=== PATIENT | female | born 1955 | race Caucasian/White ===

== ENCOUNTER 2024-04-11 09:58 | Emergency (ER) | payer OTHER, BC ==
[2024-04-11 10:07] VITALS: BP 154/83; PULSE 95; RESP 16; TEMP 98.2; BMI 21.9
[2024-04-11 12:08] LABS: BASO % 0.6 % (0-2.0); EOS % 0.2 % (0-4.5); EPI CELLS 3 /uL (0-25.1); HEMATOCRIT 41.2 % (32.4-45.2); HEMOGLOBIN 14.2 GM/dL (10.7-15.3); HYALINE CASTS 0 /uL (0-3.1); LYMPH % 24.5 % (8-40); MCH 31.5 pg (25.7-33.7); MCHC 34.5 g/dl (32.0-36.0); MEAN CELL VOLUME 91.2 fl (80-96); MEAN PLT VOLUME 6.2 fl (7.5-11.1); MONO % 6.7 % (3.8-10.2); PLATELET COUNT 283 10^3/uL (134-434); RBC 4.52 M/mm3 (3.60-5.2); RDW 12.9 % (11.6-15.6); URINE APPEARANCE CLEAR; URINE BACTERIA 98 /uL (0-1359); URINE BILIRUBIN NEGATIVE (NEGATIVE); URINE COLOR YELLOW; URINE GLUCOSE (UA) NEGATIVE (NEGATIVE); URINE KETONE NEGATIVE (NEGATIVE); URINE LEUK ESTERASE TRACE (NEGATIVE); URINE NITRITE NEGATIVE (NEGATIVE); URINE PROTEIN NEGATIVE (NEGATIVE); URINE RBC 5 /uL (0-23.9); URINE UROBILINOGEN 0.2 mg/dL (0.2-1.0); URINE WBC 5 /uL (0-25.8); WHITE BLOOD COUNT 6.6 K/mm3 (4.0-10.0)
[2024-04-11 12:19] LABS: ACTIVATED PTT 29.5 SECONDS (25.2-36.5); INR 0.93 (0.83-1.09); PROTHROMBIN TIME (PATIENT) 10.7 SEC (9.7-13.0)
[2024-04-11 12:24] LABS: CHLORIDE 105 mmol/L (98-107); SODIUM 137 mmol/L (136-145)
[2024-04-11 12:27] LABS: ALBUMIN 3.9 g/dl (3.4-5.0); CALCIUM 9.7 mg/dL (8.5-10.1); POTASSIUM 6.1 mmol/L (3.5-5.1)
[2024-04-11 12:28] LABS: ANION GAP 6 mmol/L (4-13); BLOOD UREA NITROGEN 9.6 mg/dL (7-18); CO2 26 mmol/L (21-32); GLUCOSE,RANDOM 96 mg/dL (74-106)
[2024-04-11 12:31] LABS: CREATININE 0.8 mg/dL (0.55-1.3); SGOT/AST 71 U/L (15-37)
[2024-04-11 12:32] LABS: BILIRUBIN,TOTAL 1.6 mg/dL (0.2-1)
[2024-04-11 12:33] LABS: ALK PHOS 69 U/L (45-117)
[2024-04-11 12:35] LABS: TOT PROT 7.5 g/dl (6.4-8.2)
[2024-04-11 12:49] LABS: SGPT/ALT 29 U/L (13-61)
[2024-04-11 14:16] LABS: POTASSIUM 3.6 mmol/L (3.5-5.1)
[2024-04-11 14:18] LABS: CALCIUM 8.4 mg/dL (8.5-10.1)
[2024-04-11 14:19] LABS: ALBUMIN 3.4 g/dl (3.4-5.0); BLOOD UREA NITROGEN 8.2 mg/dL (7-18)
[2024-04-11 14:22] LABS: CREATININE 0.6 mg/dL (0.55-1.3)
[2024-04-11 14:24] LABS: BILIRUBIN,TOTAL 1.2 mg/dL (0.2-1); TOT PROT 5.9 g/dl (6.4-8.2)
[2024-04-11] MEDS ORDERED: MAGNESIUM HYDROX 2400MG/30ML ORAL SUSPENSION 30 ML CUP ONE (14:29)
[2024-04-11] MEDS: MAGNESIUM HYDROX 2400MG/30ML ORAL SUSPENSION 30 ML CUP PO ONE (14:33)
== END 2024-04-11 14:38 | disposition home or self-care (01) ==
LOC: JER 09:58
DX: K59.00 Constipation, unspecified (principal); R11.0 Nausea; K62.3 Rectal prolapse
CPT/HCPCS: 36415; 74177-TC; 80053; 81003; 85025; 85610; 85730; 87086; 93005; 93010; 99285-25; Q9967

== ENCOUNTER 2024-05-02 13:36 | Observation (INO) | payer OTHER, BC ==
[2024-05-02 13:46] VITALS: BMI 21.9
[2024-05-02 15:29] LABS: BASO % 0.5 % (0-2.0); EOS % 1.2 % (0-4.5); HEMATOCRIT 46.1 % (32.4-45.2); HEMOGLOBIN 15.6 GM/dL (10.7-15.3); LYMPH % 30.1 % (8-40); MCH 31.3 pg (25.7-33.7); MCHC 33.8 g/dl (32.0-36.0); MEAN CELL VOLUME 92.7 fl (80-96); MEAN PLT VOLUME 6.1 fl (7.5-11.1); MONO % 6.7 % (3.8-10.2); NEUT % 61.5 % (42.8-82.8); PLATELET COUNT 316 10^3/uL (134-434); RBC 4.98 M/mm3 (3.60-5.2); RDW 12.9 % (11.6-15.6); WHITE BLOOD COUNT 6.8 K/mm3 (4.0-10.0)
[2024-05-02 15:36] LABS: INR 0.96 (0.83-1.09); PROTHROMBIN TIME (PATIENT) 10.9 SEC (9.7-13.0)
[2024-05-02 15:39] LABS: ACTIVATED PTT 23.8 SECONDS (25.2-36.5)
[2024-05-02 15:46] LABS: POTASSIUM 3.5 mmol/L (3.5-5.1)
[2024-05-02 15:48] LABS: CALCIUM 10.1 mg/dL (8.5-10.1)
[2024-05-02 15:49] LABS: ALBUMIN 4.6 g/dl (3.4-5.0); BLOOD UREA NITROGEN 13.3 mg/dL (7-18); MAGNESIUM 2.2 mg/dL (1.8-2.4)
[2024-05-02 15:52] LABS: CREATININE 0.9 mg/dL (0.55-1.3)
[2024-05-02 15:53] LABS: BILIRUBIN,TOTAL 1.8 mg/dL (0.2-1); TOT PROT 7.8 g/dl (6.4-8.2)
[2024-05-02] MEDS ORDERED: MAGNESIUM CITRATE 300 ML BOTTLE ONE (15:57)
[2024-05-02] MEDS: MINERAL OIL ENEMA 133 ML ENEMA RC ONE (15:58)
[2024-05-02] MEDS: LACTATED RINGERS SOLUTION 1000 ML INFUS.BAG IV ONE (16:02)
[2024-05-02] MEDS: MAGNESIUM CITRATE 300 ML BOTTLE PO ONE (16:02)
[2024-05-02 16:15] LABS: LACTIC ACID 2.2 mmol/L (0.4-2.0)
[2024-05-02 16:47] LABS: HIV INTERPRETATION NEGATIVE (NEGATIVE)
[2024-05-03] MEDS: DOCUSATE SODIUM 100 MG CAPSULE (FP) PO SCH (05:41)
[2024-05-03] MEDS ORDERED: BISACODYL 10 MG SUPP.RECT PR PRN (08:44)
[2024-05-03 09:44] LABS: BASO % 0.9 % (0-2.0); EOS % 3.2 % (0-4.5); HEMATOCRIT 39.9 % (32.4-45.2); HEMOGLOBIN 13.2 GM/dL (10.7-15.3); LYMPH % 35.4 % (8-40); MCH 30.6 pg (25.7-33.7); MCHC 33.2 g/dl (32.0-36.0); MEAN CELL VOLUME 92.4 fl (80-96); MEAN PLT VOLUME 6.2 fl (7.5-11.1); MONO % 8.8 % (3.8-10.2); NEUT % 51.7 % (42.8-82.8); PLATELET COUNT 277 10^3/uL (134-434); RBC 4.32 M/mm3 (3.60-5.2); RDW 12.7 % (11.6-15.6); WHITE BLOOD COUNT 5.3 K/mm3 (4.0-10.0)
[2024-05-03] MEDS ORDERED: POLYETHYLENE GLYCOL (HEALTHYLAX) 3350 17 GM PACKET PO SCH (10:00)
[2024-05-03 10:04] LABS: POTASSIUM 3.7 mmol/L (3.5-5.1)
[2024-05-03 10:07] LABS: CALCIUM 9.4 mg/dL (8.5-10.1)
[2024-05-03 10:08] LABS: BLOOD UREA NITROGEN 9.5 mg/dL (7-18)
[2024-05-03 10:11] LABS: CREATININE 0.8 mg/dL (0.55-1.3)
[2024-05-03] MEDS: POLYETHYLENE GLYCOL (HEALTHYLAX) 3350 17 GM PACKET PO SCH (13:31)
[2024-05-03] MEDS: METOCLOPRAMIDE HCL 10 MG TABLET (FP) PO ONE (19:54)
[2024-05-03] MEDS: ONDANSETRON 4 MG TABLET PO ONE (20:10)
[2024-05-03] MEDS: ROSUVASTATIN CA 10 MG TABLET PO SCH (21:27)
[2024-05-04] MEDS: ACETAMINOPHEN 325 MG TABLET (FP) PO PRN (05:49)
[2024-05-04] MEDS ORDERED: SODIUM PHOSPHATE/NA BIPHOS 133 ML ENEMA RC ONE (13:05)
[2024-05-04] MEDS: POLYETHYLENE GLYCOL 3350 255 GM BTL PO ONE (14:35)
[2024-05-05] MEDS: SODIUM PHOSPHATE/NA BIPHOS 133 ML ENEMA RC ONE ×2 (05:44→06:10)
[2024-05-05 09:29] LABS: BASO % 0.6 % (0-2.0); EOS % 2.1 % (0-4.5); HEMATOCRIT 40.4 % (32.4-45.2); HEMOGLOBIN 13.8 GM/dL (10.7-15.3); LYMPH % 31.2 % (8-40); MCH 31.5 pg (25.7-33.7); MCHC 34.1 g/dl (32.0-36.0); MEAN CELL VOLUME 92.2 fl (80-96); MEAN PLT VOLUME 6.2 fl (7.5-11.1); MONO % 8.7 % (3.8-10.2); NEUT % 57.4 % (42.8-82.8); PLATELET COUNT 254 10^3/uL (134-434); RBC 4.39 M/mm3 (3.60-5.2); RDW 12.9 % (11.6-15.6)
[2024-05-05 09:41] LABS: POTASSIUM 3.9 mmol/L (3.5-5.1)
[2024-05-05 09:44] LABS: BLOOD UREA NITROGEN 6.2 mg/dL (7-18); CALCIUM 9.5 mg/dL (8.5-10.1)
[2024-05-05 09:48] LABS: CREATININE 0.7 mg/dL (0.55-1.3)
[2024-05-05 09:49] LABS: BILIRUBIN,TOTAL 1.5 mg/dL (0.2-1); TOT PROT 6.3 g/dl (6.4-8.2)
[2024-05-05 09:51] LABS: ALBUMIN 3.6 g/dl (3.4-5.0)
[2024-05-05 11:54] LABS: BILIRUBIN,DIRECT 0.4 mg/dL (0.0-0.2)
[2024-05-05 13:06] VITALS: RESP 18
[2024-05-05 18:55] VITALS: BP 119/64; PULSE 87; TEMP 98.8
== END 2024-05-05 19:29 | disposition home or self-care (01) ==
LOC: JER 13:36 → JERBED 21:58 → J5S 23:37
PROVIDERS: ADMIT Internal Medicine; ATTEND Family Medicine
PROC: 3E0337Z Introduction of Electrolytic and Water Balance Substance into Peripheral Vein, Percutaneous Approach (ICD-10-PCS; principal; 2024-05-02)
PROC: 0DB98ZX Excision of Duodenum, Via Natural or Artificial Opening Endoscopic, Diagnostic (ICD-10-PCS; 2024-05-05)
PROC: 0DB68ZX Excision of Stomach, Via Natural or Artificial Opening Endoscopic, Diagnostic (ICD-10-PCS; 2024-05-05)
PROC: 0DBK8ZX Excision of Ascending Colon, Via Natural or Artificial Opening Endoscopic, Diagnostic (ICD-10-PCS; 2024-05-05)
PROC: 0DBN8ZX Excision of Sigmoid Colon, Via Natural or Artificial Opening Endoscopic, Diagnostic (ICD-10-PCS; 2024-05-05)
PROC: 0DBH8ZX Excision of Cecum, Via Natural or Artificial Opening Endoscopic, Diagnostic (ICD-10-PCS; 2024-05-05)
DX: K29.50 Unspecified chronic gastritis without bleeding (principal); B96.81 Helicobacter pylori [H. pylori] as the cause of diseases classified elsewhere; K44.9 Diaphragmatic hernia without obstruction or gangrene; D12.0 Benign neoplasm of cecum; K64.8 Other hemorrhoids; K59.00 Constipation, unspecified; E78.5 Hyperlipidemia, unspecified; K57.90 Diverticulosis of intestine, part unspecified, without perforation or abscess without bleeding; K76.0 Fatty (change of) liver, not elsewhere classified; K80.20 Calculus of gallbladder without cholecystitis without obstruction; Z90.79 Acquired absence of other genital organ(s)
CPT/HCPCS: 36415; 74018-TC-FY; 74177-TC; 80048; 80053; 82248; 83036; 83605; 83735; 84443; 85025; 85610; 85730; 86803; 87389; 88305-TC; 88342-TC; 93005; 93010; 96360; 99285-25; G0378; Q9967